=== PATIENT | female | born 1930 | race Caucasian/White ===

== ENCOUNTER → 2017-06-04 | Outpatient (CLI) | payer OTHER ==
[~2017-06-04] MED LIST: ASPI81TA81; CITA20TA4 PO; IOHEXOL 350 MG/ML 10 ML VIAL (for RAD DIAG) IV ONE; LOVA20TA PO; METO25TA6 PO; MIRA3350 PO; OXYB5TAB10 PO; RANI150T PO
--- NOTE | 2017-06-05 07:56 | RADRPT ---
EXAM DATE/TIME: 06/04/2017 14:47 [place] COMPARISON: No previous studies available for comparison. INDICATIONS : Preoperative trans aortic valve replacement. IV CONTRAST: 100 cc Omnipaque 350 (iohexol) IV RADIATION DOSE: 51.97 CTDIvol (mGy) MEDICAL HISTORY : Carcinoma, colon. SURGICAL HISTORY : None. ENCOUNTER: Initial ACUITY: 1 day PAIN SCALE: 0/10 LOCATION: Bilateral chest TECHNIQUE: Volumetric scanning was performed using a multi-row detector CT scanner. The data was post processed with a variety of visualization algorithms including full volume maximum intensity projection, multi -planar sliding thin slab reformation, curved planar reformation, and surface rendering techniques. Using automated exposure control and adjustment of the mA and/or kV according to patient size, radiat ion dose was kept as low as reasonably achievable to obtain optimal diagnostic quality images. DIC OM format image data is available electronically for review and comparison. FINDINGS: Moderately calcified aortic valve is seen. No dilatation of aortic root or ascending aorta. No dissec tion. Descending thoracic aorta is unremarkable with the exception of some mild atherosclerotic fluler es. Minimal coronary artery calcifications. There does appear to be mild left ventricular hypertrophy . No pericardial abnormality. Small hiatal hernia. There is cholelithiasis. Mild atherosclerotic dickson ges of the abdominal aorta. There is extensive diverticulosis of the sigmoid colon mild atherosclerot ic changes of the origins of the celiac axis and superior mesenteric arteries. Mild atherosclerotic c hanges of the origin of both renal arteries. Right hip nail. No concerning nodules or infiltrate. No large mediastinal or hilar adenopathy. CONCLUSION: 1. Calcified aortic valve. 2. Minimal coronary artery calcifications. 3. Small hiatal hernia. 4. Cholelithiasis. 5. Diverticulosis. Joseph Mott MD on June 05, 2017 at 7:49 Board Certified Radiologist. This report was verified electronically.
== END ==
LOC: HRAD 13:04
PROVIDERS: ATTEND Radiology Vascular & Interventional Radiology
DX: I35.0 Nonrheumatic aortic (valve) stenosis (principal)
CPT/HCPCS: 74174; Q9967

== ENCOUNTER 2017-06-13 06:45 | Day surgery (SDC) | payer OTHER ==
[2017-06-13] VITALS (13 sets, daily range): BP systolic 127–186; BP diastolic 64–89; PULSE 60–75; RESP 16–18; TEMP 97.6–98.1; O2SAT 96–97
[~2017-06-13] VITALS: Ht 121.9 cm; Wt 63.0 kg
[2017-06-13] MEDS ORDERED: MIRA3350 PO (07:07)
[2017-06-13] MEDS ORDERED: OXYB5TAB10 PO (07:07)
[2017-06-13] MEDS ORDERED: ASPI81TA81 (07:07)
[2017-06-13] MEDS ORDERED: CITA20TA4 PO (07:07)
[2017-06-13] MEDS ORDERED: LOVA20TA PO (07:07)
[2017-06-13] MEDS ORDERED: METO25TA6 PO (07:07)
[2017-06-13] MEDS ORDERED: RANI150T PO (07:07)
[2017-06-13 08:41] LABS: AUTOMATED NEUTROPHIL # 2.5 TH/MM3 (1.8-7.7); BASOPHIL % 0.8 % (0.0-2.0); EOSINOPHIL # 0.2 TH/MM3 (0-0.4); EOSINOPHIL % 4.2 % (0.0-4.0); HEMATOCRIT 32.9 % (35.0-46.0); HEMO FLAGS DIFF FINAL; LYMPHOCYTE # 2.1 TH/MM3 (1.0-4.8); MEAN CELL VOLUME 88.4 FL (80.0-100.0); MEAN CORPUSCULAR HEMOGLOBIN 28.7 PG (27.0-34.0); MEAN CORPUSCULAR HGB CONC 32.5 % (32.0-36.0); MONO % 9.5 % (0.0-8.0); NEUT % 46.5 % (16.0-70.0); PLATELET COUNT 220 TH/MM3 (150-450); RED BLOOD COUNT 3.72 MIL/MM3 (4.00-5.30); WHITE BLOOD COUNT 5.4 TH/MM3 (4.0-11.0)
[2017-06-13 08:49] LABS: APTT (PATIENT) 30.4 SEC (24.3-30.1); INTERNATIONAL NORMALIZED RATIO 1.1 RATIO
[2017-06-13 08:58] LABS: BICARBONATE 24.2 MEQ/L (21.0-32.0)
[2017-06-13] MEDS ORDERED: MIDAZOLAM HCL 2 MG/2 ML VIAL ONE (09:25)
[2017-06-13] MEDS ORDERED: NITROGLYCERIN INJ 5 ML ONE (09:25)
[2017-06-13] MEDS ORDERED: HEPARIN-NS/PF INJ 500 ML ONE ×2 (09:25→09:58)
[2017-06-13] MEDS ORDERED: HEPARIN SODIUM - IV 10,000 UNITS/10 ML VIAL ONE (09:25)
[2017-06-13] MEDS ORDERED: PHENYLEPH/NS 1000 MCG/10 ML SYR ONE (09:30)
[2017-06-13] MEDS ORDERED: PROTAMINE SULFATE 50 MG/5 ML VIAL ONE (10:21)
[2017-06-13] MEDS ORDERED: IOHEXOL 350 MG/ML 50 ML BTL (for Cath Lab) OTHER ONE (11:15)
--- NOTE | 2017-06-13 12:10 | PD.CONS ---
History of Present Illness Service CT Surgery Consult Requested By Dr. Boucher Reason for Consult Critical aortic stenosis, fatigue, and exertional dyspnea Primary Care Physician Liat Ho Diagnoses: (1) Aortic stenosis (2) Diastolic CHF History of Present Illness Frail 86 y/o female presents with exertional dyspnea and progressive functional decline. She was also found to have colon cancer recently and will require a surgical procedure. She underwent balloon valvuloplasty of the aortic valve today as a temprozing measure to have her colon cancer addressed. She is being evaluated for TAVR vs AVR. She denies PND or orthopnea. Review of Systems Constitutional: COMPLAINS OF: Fatigue Endocrine: DENIES: Abnorml menstrual pattern, Heat/cold intolerance, Polydipsia , Polyuria, Polyphagia Eyes: DENIES: Blurred vision, Diplopia, Eye inflammation, Eye pain, Vision loss , Photosensitivity, Double Vision Ears, nose, mouth, throat: DENIES: Tinnitus, Hearing loss, Vertigo, Nasal discharge, Oral lesions, Throat pain, Hoarseness, Ear Pain, Running Nose, Epistaxis, Sinus Pain, Toothache, Odynophagia Respiratory: COMPLAINS OF: Shortness of breath, DENIES: Apneas, Cough, Snoring , Wheezing, Hemoptysis, Sputum production Cardiovascular: COMPLAINS OF: Dyspnea on Exertion, DENIES: Chest pain, Palpitations, Syncope, PND, Lower Extremity Edema, Orthopnea, Claudication Gastrointestinal: COMPLAINS OF: Constipation, DENIES: Abdominal pain, Black stools, Bloody stools, Diarrhea, Nausea, Vomiting, Difficulty Swallowing, Anorexia Genitourinary: DENIES: Abnormal vaginal bleeding, Dysmenorrhea, Dyspareunia, Sexual dysfunction, Urinary frequency, Urinary incontinence, Urgency, Hematuria , Dysuria, Nocturia, Vaginal discharge Musculoskeletal: COMPLAINS OF: Joint pain, Stiffness Integumentary: DENIES: Abnormal pigmentation, Pruritus, Rash, Nail changes, Breast masses, Breast skin changes, Nipple discharge Hematologic/lymphatic: DENIES: Bruising, Lymphadenopathy Immunologic/allergic: DENIES: Eczema, Urticaria Neurologic: COMPLAINS OF: Abnormal gait, Poor Balance, DENIES: Headache, Localized weakness, Paresthesias, Seizures, Speech Problems, Tremor Psychiatric: DENIES: Anxiety, Confusion, Mood changes, Depression, Hallucinations, Agitation, Suicidal Ideation, Homicidal Ideation, Delusions Past Family Social History Allergies: Coded Allergies: No Known Allergies (Unverified , 06/13/17) Past Medical History colon cancer HTN Reported Medications citalopram lopressor ditropan miralax ranitidine lovastatin ASA Family History unremarkable Social History Denies ETOH, tobacco abuse Physical Exam Vital Signs Vital Signs Date Time Temp Pulse Resp B/P Pulse Ox O2 Delivery O2 Flow Rate FiO2 06/13/17 10:56 91 Room Air 06/13/17 07:00 97.6 75 18 152/89 97 Physical Exam GENERAL: This is a well-nourished, well-developed patient, in no apparent distress. SKIN: No rashes, ecchymoses or lesions. Cool and dry. HEAD: Atraumatic. Normocephalic. No temporal or scalp tenderness. EYES: Pupils equal round and reactive. Extraocular motions intact. No scleral icterus. No injection or drainage. ENT: Nose without bleeding, purulent drainage or septal hematoma. Throat without erythema, tonsillar hypertrophy or exudate. Uvula midline. Airway patent. NECK: Trachea midline. No JVD or lymphadenopathy. Supple, nontender, no meningeal signs. CARDIOVASCULAR: Regular rate and rhythm with 2/6 CAT at the RUSB. RESPIRATORY: Clear to auscultation. Breath sounds equal bilaterally. No wheezes , rales, or rhonchi. GASTROINTESTINAL: Abdomen soft, non-tender, nondistended. No hepato-splenomegaly , or palpable masses. No guarding. MUSCULOSKELETAL: Extremities without clubbing, cyanosis, or edema. No joint tenderness, effusion, or edema noted. No calf tenderness. Negative Homans sign bilaterally. NEUROLOGICAL: Awake and alert. Cranial nerves II through XII intact. Motor and sensory grossly within normal limits. Five out of 5 muscle strength in all muscle groups. Normal speech. Laboratory Laboratory Tests Test 06/13/17 07:15 White Blood Count 5.4 Red Blood Count 3.72 Hemoglobin 10.7 Hematocrit 32.9 Mean Corpuscular Volume 88.4 Mean Corpuscular Hemoglobin 28.7 Mean Corpuscular Hemoglobin 32.5 Concent Red Cell Distribution Width 15.0 Platelet Count 220 Mean Platelet Volume 8.2 Neutrophils (%) (Auto) 46.5 Lymphocytes (%) (Auto) 39.0 Monocytes (%) (Auto) 9.5 Eosinophils (%) (Auto) 4.2 Basophils (%) (Auto) 0.8 Neutrophils # (Auto) 2.5 Lymphocytes # (Auto) 2.1 Monocytes # (Auto) 0.5 Eosinophils # (Auto) 0.2 Basophils # (Auto) 0.0 CBC Comment DIFF FINAL Differential Comment Prothrombin Time 12.0 Prothromb Time International 1.1 Ratio Activated Partial 30.4 Thromboplast Time Sodium Level 138 Potassium Level 4.0 Chloride Level 107 Carbon Dioxide Level 24.2 Anion Gap 7 Blood Urea Nitrogen 21 Creatinine 0.91 Estimat Glomerular Filtration 58 Rate Random Glucose 88 Calcium Level 8.7 Albumin 3.2 Result Diagram: 06/13/1771406/13/17714 Course Patient underwent successful BAV this morning. She is currently stable and resting comfortably Assessment and Plan Problem List: (1) Aortic stenosis Status: Acute (2) Diastolic CHF Status: Acute Assessment and Plan Frail, 86y/o female presents with critical symptomatic and colon cancer. She is s/p BAV this morning to hopefully optimize her cardiac risk with a colon resection. She is a poor operative candidate for open AVR based on her functional status and would be better served with TAVR once her colon cancer is adequately treated. Problem Qualifiers (1) Aortic stenosis: Qualified Code: I35.0 - Aortic valve stenosis, unspecified etiology (2) Diastolic CHF: Qualified Code: I50.33 - Acute on chronic diastolic congestive heart failure Rosy Espinosa MD Jun 13, 2017 12:10
--- NOTE | 2017-06-13 12:45 | MA ---
cc: LIVIER NIXON KATHLEEN M.D. DATE: 06/13/2017 DATE OF : 1930 PROCEDURE PERFORMED 1. Selective right and left coronary angiography. 2. Left heart catheterization. 3. Temporary pacemaker to the right femoral vein. 4. BAV with an 80 mm True balloon. INDICATION Severe symptomatic aortic stenosis [place] [facility] classification 2, undergoing GI surgery for colon cancer. HAND BOOKBINDER Dr. Nixon SECONDARY SQL ARCHITECT Dr. Hussein aMys PROCEDURE DESCRIPTION Consent signed. The patient was brought into the cardiac packing house laborer in a fasting state. The right groin was prepped and draped in sterile fashion. Using 1% lidocaine for local anesthesia and a micropuncture kit a 6-Norwegian sheath was inserted into the right femoral vein. Angiography was performed to confirm position of the arterial sheath then the arterial sheath was exchanged to an 8- Norwegian. We then Pre-closed the artery with two Perclose devices. We then inserted a long 11-Norwegian sheath. IV heparin was given for anticoagulation. Selective right and left coronary angiography was performed with a JR4 and a JL5 diagnostic catheter. Angiography was taken in multiple views. Then an AL-1 catheter was introduced over a J-wire towards to the ascending aorta. The wire was exchanged for a straight Amplatz 260cm length. We were able to cross the valve with the Amplatz wire. The catheter was then exchanged for a dual-lumen pigtail. We simultaneously measured the pressures in the ascending aorta and the left ventricle confirming the severity of the aortic stenosis. This was followed by insertion of an 18mm True Balloon which was inflated in the aortic valve. Gradients post BAV went down more than 10 mmHg. The patient tolerated the procedure without complications. Estimated blood loss was less than 30 cc. Total contrast used was 45 cc. The right groin access site was closed with a Perclose and the vein access was closed with a Vascade device. RESULTS LEFT VENTRICLE The left ventricular pressure was 150/21 with an LVEDP of 34. The aortic pressure was 109/46 with a mean of 69. The pre BAV gradient was 50mmHg and the post BAV gradient was 38mmHg. ANGIOGRAPHY 1. The right coronary artery is a dominant vessel giving off the PDA. It has a 30% lesion in its distal segment. The PDA and the PLB branches are patent with DEVIN-III flow. 2. The left main is patent with DEVIN-III flow and nonobstructive coronary artery disease. 3. The LAD has a 30% lesion in its proximal segment. The rest of the vessel has minimal luminal irregularities, is tortuous and patent. It has two diagonal vessels, the first one being of prominent size that is also tortuous with DEVIN-III flow and nonobstructive CAD. The second diagonal is small and patent. 4. The left circumflex artery is composed mainly of a big OM1 branch. This vessel is patent with DEVIN-III flow and nonobstructive coronary artery disease. There is also a segment that is going to the AV groove which is small and also patent. 5. The ramus is patent with DEVIN-III flow and nonobstructive coronary artery disease. CONCLUSIONS 1. Successful BAV with an 18 mm True balloon as a bridge for colorectal surgery. 2. Nonobstructive coronary artery disease. RECOMMENDATIONS The patient will go to the [facility] for post-cath care. She will continue aggressive medical management for secondary prevention of CAD. No further cardiovascular work up needed prior to colorectal surgery. MD CHET Meneses/WEI /10:43 AM /12:23 PM JASMIN
--- NOTE | 2017-06-13 20:22 | EKG ---
Date Performed: 06/13/2017 Time Performed: 08:23:30 PTAGE: 86 years EKG: Sinus bradycardia with borderline 1st degree A-V block Left axis deviation Left bundle bran ch block Abnormal ECG NO PREVIOUS TRACING DOCTOR: Ysabel Cabezas Interpretating Date/Time 06/13/2017 20:22:03
[2017-06-13] MEDS: FAMOTIDINE 20 MG TAB PO SCH (21:08)
--- NOTE | 2017-06-13 21:52 | ECHRPT ---
Indication: EVALUATE FOR AI CONCLUSIONS This limited echo was done to evaluate AI pre op. There is trace AI BP: / HR: Rhythm: Technical Quality:Good Ysabel Cabezas MD, FACC (Electronically Signed) Final Date:13 June 2017 21:50
[2017-06-14] VITALS (8 sets, daily range): BP systolic 110–111; BP diastolic 56–60; PULSE 69–76; RESP 16; TEMP 98–98.4; O2SAT 97
[2017-06-14] MEDS ORDERED: ASPIRIN EC 81 MG TABEC PO SCH (09:00)
[2017-06-14] MEDS ORDERED: POLYETHYLENE GLYCOL 17 GM PKG PO SCH (09:00)
[2017-06-14] MEDS: FAMOTIDINE 20 MG TAB PO SCH (09:20)
--- NOTE | 2017-06-14 12:16 | PD.CARD.PN ---
Subjective Subjective Remarks no cv complaints no overnight events Objective Vital Signs / I&O Vital Signs Date Time Temp Pulse Resp B/P Pulse Ox O2 Delivery O2 Flow Rate FiO2 06/14/17 08:00 98.4 73 16 110/60 97 06/14/17 08:00 73 06/14/17 06:00 74 06/14/17 05:00 72 06/14/17 04:00 98.0 71 16 111/56 97 06/14/17 04:00 72 06/14/17 03:00 72 06/14/17 02:00 70 06/14/17 01:00 69 06/14/17 00:00 76 06/13/17 23:39 98.1 70 16 139/74 96 06/13/17 23:00 73 06/13/17 22:00 72 06/13/17 21:00 70 06/13/17 20:00 97.9 69 16 127/64 96 06/13/17 20:00 70 06/13/17 19:00 69 06/13/17 18:00 72 06/13/17 17:48 74 06/13/17 16:02 68 06/13/17 15:58 60 06/13/17 15:48 97.7 68 16 186/88 97 06/13/17 13:36 97.7 64 16 158/84 96 06/13/17 12:40 16 I/O 06/13/17 06/13/17 06/13/17 06/14/17 06/14/17 06/14/17 07:00 15:00 23:00 07:00 15:00 23:00 Intake Total 480 ml 240 ml Output Total 1200 ml Balance -720 ml 240 ml Intake Oral 480 ml 240 ml Output Urine Total 1200 ml # Voids 2 # Bowel Movements 0 Physical Exam GENERAL: Well-nourished, well-developed patient. SKIN: Warm and dry. HEAD: Normocephalic. EYES: No scleral icterus. No injection or drainage. NECK: Supple, trachea midline. No JVD or lymphadenopathy. CARDIOVASCULAR: Regular rate and rhythm without murmurs, gallops, or rubs. RESPIRATORY: Breath sounds equal bilaterally. No accessory muscle use. GASTROINTESTINAL: Abdomen soft, non-tender, nondistended. EXTREMITIES: No cyanosis, or edema. NEUROLOGICAL: Awake, alert, and oriented x 3. Non-focal. Assessment and Plan Problem List: (1) Aortic stenosis Assessment and Plan: s/p BAV Doing well this am No CV complaints Ambulating without difficulties stable to d/c home today (2) Diastolic CHF Problem Qualifiers (1) Aortic stenosis: Qualified Code: I35.0 - Aortic valve stenosis, unspecified etiology (2) Diastolic CHF: Qualified Code: I50.33 - Acute on chronic diastolic congestive heart failure Noé Avalos MD Jun 14, 2017 12:15
--- NOTE | 2017-06-14 12:20 | HHI.DS ---
Discharge Summary Admission Date 06/13/2017 Discharge Date: Jun 14, 2017 Admitting Diagnosis Severe Aortic Stenosis, symptomatic NYHA II (1) Aortic stenosis Diagnosis: Principal (2) Diastolic CHF Diagnosis: Principal Procedures Balloon Aortic Valvuloplasty Brief History 86 y/o F requiring Colon Surgery for CA. Cardiac hx of severe with SOB. Admitted for BAV as a bridge to GI surgery CBC/BMP: 06/13/17 0715 06/13/17 0715 Significant Findings Laboratory Tests Test 06/13/17 07:15 Red Blood Count 3.72 MIL/MM3 (4.00-5.30) Hemoglobin 10.7 GM/DL (11.6-15.3) Hematocrit 32.9 % (35.0-46.0) Monocytes (%) (Auto) 9.5 % (0.0-8.0) Eosinophils (%) (Auto) 4.2 % (0.0-4.0) Prothrombin Time 12.0 SEC (9.8-11.6) Activated Partial 30.4 SEC Thromboplast Time (24.3-30.1) Blood Urea Nitrogen 21 MG/DL (7-18) Estimat Glomerular Filtration 58 ML/MIN (>89) Rate Albumin 3.2 GM/DL (3.4-5.0) PE at Discharge GENERAL: Well-nourished, well-developed patient. SKIN: Warm and dry. HEAD: Normocephalic. EYES: No scleral icterus. No injection or drainage. NECK: Supple, trachea midline. No JVD or lymphadenopathy. CARDIOVASCULAR: Regular rate and rhythm 3/6 CAT NO gallops, or rubs. RESPIRATORY: Breath sounds equal bilaterally. No accessory muscle use. GASTROINTESTINAL: Abdomen soft, non-tender, nondistended. EXTREMITIES: No cyanosis, or edema. NEUROLOGICAL: Awake, alert, and oriented x 3. Non-focal. Hospital Course s/p successful BAV with a 18mm True Balloon. Pt Condition on Discharge: Good Discharge Disposition: Discharge Home Discharge Instructions DIET: Follow Instructions for: Heart Healthy Diet Activities you can perform: Regular-No Restrictions Noé Avalos MD Jun 14, 2017 12:20
--- NOTE | 2017-06-18 10:54 | RSPPFT ---
DATE OF PROCEDURE: 06/13/17 COMMENTS: Spirometry with FVC of 1.5, FEV1 of 1.2, FEV1/FVC ratio at 81%. Post-bronchodilator study was not performed. IMPRESSION: 1. Essentially normal spirometry.
== END 2017-06-14 12:56 | disposition home or self-care (01) ==
LOC: HDIC 06:45 → HCVO 06:45 → HCIN 13:59 → HCVO 06-14 12:56
PROVIDERS: ATTEND Radiology Vascular & Interventional Radiology
DX: I35.0 Nonrheumatic aortic (valve) stenosis (principal); C18.9 Malignant neoplasm of colon, unspecified; R94.31 Abnormal electrocardiogram [ECG] [EKG]; R53.83 Other fatigue; R06.00 Dyspnea, unspecified; R06.02 Shortness of breath; R54 Age-related physical debility; K59.00 Constipation, unspecified; M25.50 Pain in unspecified joint; R26.9 Unspecified abnormalities of gait and mobility; I25.10 Atherosclerotic heart disease of native coronary artery without angina pectoris; I11.0 Hypertensive heart disease with heart failure; I50.33 Acute on chronic diastolic (congestive) heart failure; R00.1 Bradycardia, unspecified; I44.7 Left bundle-branch block, unspecified; Z79.899 Other long term (current) drug therapy; Z79.82 Long term (current) use of aspirin; Z01.810 Encounter for preprocedural cardiovascular examination; Z01.812 Encounter for preprocedural laboratory examination; Z01.811 Encounter for preprocedural respiratory examination
CPT/HCPCS: 80048; 82040; 85002; 85025; 85610; 85730; 92986; 93005; 93308; 93454; 94010; C1760; C1769; C1893; G0269; J1644; J2250; J2720; J3010; J2370; Q9967